=== PATIENT | male | born 1990 | race Two or more races ===

== ENCOUNTER 2016-12-17 19:02 | Emergency (ER) | payer SELFPAY ==
[~2016-12-17] VITALS: Ht 172.7 cm; Wt 83.9 kg
[2016-12-17 20:48] VITALS: BP 123/69
[2016-12-17] MEDS ORDERED: LIDOCAINE 1% HCL (LOCAL ANESTH.) INJ 20ML MDV IN ONE (21:15)
[2016-12-17] MEDS ORDERED: TETANUS-DIPTH-ACEL PERTUSSIS 0.5ML SYRG IM ONE (21:45)
== END 2016-12-17 21:49 | disposition home or self-care (01) ==
LOC: ER 19:05
DX: S01.21XA Laceration without foreign body of nose, initial encounter (principal); Y08.89XA Assault by other specified means, initial encounter; Y93.89 Activity, other specified; Y92.89 Other specified places as the place of occurrence of the external cause; Y99.8 Other external cause status
CPT/HCPCS: 12011; 90471; 90715; 99283; J2001